=== PATIENT | male | born 1955 | race Two or more races ===

== ENCOUNTER 2025-07-17 13:25 | Outpatient (AMB) | payer OTHER, SELFPAY ==
[2025-07-17 13:55] VITALS: BP 151/81; PULSE 75; RESP 18; TEMP 36.4; O2SAT 95; BMI 33.6
--- NOTE | 2025-07-17 13:55 | PD.ORTHCLVIS ---
Vital signs 07/17/25 13:55 Height 1.68 m Height Method Stated Weight 94.461 kg Weight Measurement Method Standing Scale BMI 33.6 BP 151/81 H Blood Pressure Source Automatic Cuff Blood Pressure Location Left Upper Arm Position Sitting Respiration 18 Pulse 75 Pulse Source Monitor Temp 97.6 F Temp Source Temporal Artery Scan Pulse Oximetry (%) 95 Oxygen Delivery Method Room Air Med/Allergies Allergies & Medications Allergies No Known Allergies Allergy (Verified 07/17/25 13:55) Medication Reconciliation No Known Home Medications 07/17/25 [History Confirmed 07/17/25] Exam Exam Patient is in no acute distress and is cooperative with the examination today. Breathing is nonlabored. In no respiratory distress. Patient has no paraspinal tenderness. Spinal deformity cannot be appreciated. The gait of the patient is nonantalgic Bilateral extremities were evaluated and demonstrates sensation intact to light touch. Palpable pedal pulses are present. No significant edema is present. Bilateral knees were examined and the patient has full strength and range of motion.. The left hip was examined. Patient was able to flex to 90 degrees, adduct to 30 degrees, abduct to 40 degrees, internally rotate to 20 degrees, and externally rotate to 20 degrees. Patient has a negative logroll. Stinchfield is negative. The patient is nontender diffusely to touch. The right hip was examined. Patient was able to flex to 90 degrees, adduct to 30 degrees, abduct to 40 degrees, internally rotate to 20 degrees, and externally rotate to 20 degrees. Patient has a negative logroll. The stinchfield is negative. X-rays demonstrate minimal joint space narrowing for both his hips. In his back he has significant degenerative changes Assessment and Plan Problem List (1) Spinal stenosis: Status: Acute Plan: Patient is a pleasant 69-year-old male with mild bilateral hip arthritis and symptoms of spinal stenosis. He has a positive shopping cart sign and significant pathology x-rays. We will order an MRI to better evaluate his spinal stenosis. I recommend that he see a spine surgeon as well. I do not think the pain is coming from his hip as he has a benign hip clinical exam Advanced Care Planning Discussion Advance care planning discussed with:: patient Office Procedures GNS Level of Care Nursing/Assessment Patient Status: Initial/New Patient Nursing Assessment/Reassesment: Medication Reconciliation, Update PMH in EMR and Vital Signs Coordination of Care: Complex Care and Chronic Disease 1-5, Education Complex Pt/Fam, Consent,records obtained, informed consent, 1 Ins Authorization, Lab and Imaging orders, Results/Orders obtained and Staff clarify orders New Patient Charge New Patient Point Assignment: 1124 New Patient Point Charge: SENIOR TELECOMMUNICATIONS SPECIALIST Level 4 ([id number]) MA Intake Visit Data Collection New Patient or Established: New Patient (never been to [facility]) Reason for Visit:: BL OA HIP Seen by Clinical Staff ONLY (RN/MA): No PCP or OBGYN visit in last 3 months: Yes Hx Now: No Do You Feel Safe at Home: Yes Authorities Contacted: N/A Questionairres Past Medical History Past Medical History Have you ever been diagnosed with any of the following: Respiratory Problems Smoking: No Smoking Cessation Counseling: No Smoking Exposure: No Subjective Visit Visit for: new patient and hip Immunization / Flu Flu Vaccine in the Last 12 Months: No Flu Vaccine Exclusion Criteria: Refused by Patient History of Present Illness Chief complaint: BILATERAL HIP OA Date of injury / onset of symptoms: 10 YEARS Patient is a pleasant 69-year-old male with a bilateral buttocks pain that radiates down the thigh. This been ongoing for several years. He was previously told that his hip. Had multiple injections in the past which provided some relief. He denies any pain in his groin Personal History Occupation: DISABLED BMI Counceling provided: Yes Pain Pain level (0-10): 4 Pain duration: ON AND OFF Pain location: groin, inside (medial) and anterior Pain quality: dull and aching Pain timing: increases with activity and stairs Associated signs & symptoms: none Ambulatory data Ambulatory device: cane Treatments Number of previous injections: 2 Improvement with previous injections: Yes Number of Physical Therapy sessions: 10 Improvement with PT: No Improvement with NSAIDS: no Review of Systems Review of Systems: All systems negative unless otherwise noted in HPI.
== END 2025-07-17 14:19 | disposition home or self-care (01) ==
PROVIDERS: PCP Physician Assistant; Referring Provider Physician Assistant; Supervising Provider Orthopaedic Surgery Adult Reconstructive Orthopaedic Surgery; Visit Provider Orthopaedic Surgery Adult Reconstructive Orthopaedic Surgery
DX: M48.00 Spinal stenosis, site unspecified (principal); M16.0 Bilateral primary osteoarthritis of hip
CPT/HCPCS: 99204; G0463